=== PATIENT | male | born 1955 ===

== ENCOUNTER → 2017-07-06 | Day surgery (SDC) | payer OTHER ==
[~2017-07-06] VITALS: Ht 195.5 cm; Wt 98.4 kg
[~2017-07-06] MED LIST: HYDROCHLOROTH12.5 M2 PO
[2017-07-06 06:55] VITALS: BP 126/81
[2017-07-06 08:06] VITALS: BP 97/54
[2017-07-06 08:21] VITALS: BP 103/67
[2017-07-06 08:36] VITALS: BP 141/93
== END | disposition home or self-care (01) ==
LOC: SDC 07-02 09:30
DX: K57.30 Diverticulosis of large intestine without perforation or abscess without bleeding (principal); K64.8 Other hemorrhoids; Z98.0 Intestinal bypass and anastomosis status; I10 Essential (primary) hypertension; Z90.49 Acquired absence of other specified parts of digestive tract; Z98.890 Other specified postprocedural states